=== PATIENT | female | born 1980 | race Caucasian/White ===

== ENCOUNTER 2019-06-06 03:27 | Emergency (ER) | payer OTHER ==
[~2019-06-06] VITALS: Ht 165.1 cm; Wt 59.0 kg
[2019-06-06 03:37] VITALS: BP 109/74
--- NOTE | 2019-06-06 03:37 | NUR ---
ED Nurse Note: Patient walked in to ER due to bug bite on bilateral ankle since yesterday, unknown insect, reports itching and pain, blisters noted. Able to walk with steady gait. No SOB. Afebrile. VSS.
[2019-06-06] MEDS ORDERED: Clindamycin 600mg 50 ML IVPB ONE (03:45)
[2019-06-06] MEDS ORDERED: Bacitracin Oint UD TOPIC ONE (03:45)
[2019-06-06] MEDS ORDERED: CLINDAMYCIN HC300 MG ORAL (03:49)
[2019-06-06] MEDS ORDERED: BENADRYL25 MG ORAL (03:49)
[2019-06-06] MEDS ORDERED: MUPIROCIN22 GM TOPIC (03:49)
--- NOTE | 2019-06-06 03:50 | Emergency Room Report ---
History of Present Illness General Chief Complaint: Skin Rash/Abscess Source: Patient Present Illness [facility] This is a 39-year-old female with no past medical history. She presents with chief complaint of redness and itchiness to bilateral lower extremity. She noticed some itchiness and mild redness yesterday. She went hiking this morning. When she came home he got worse and now is more red and couple blister to the left ankle. Some mild redness to the right. Did not see anything biting her. Denies any fever chills but denies any nausea vomiting. She been using hydrocortisone cream is not helping. No other complaint. Worse with scratching. Better with rest. Allergies: Coded Allergies: No Known Allergies (Unverified , 06/06/19) Patient History Past Medical History: see triage record, old chart reviewed Past Surgical History: none Pertinent Family History: none Social History: Denies: smoking Now: No Immunizations: other Reviewed Nursing Documentation: PMH: Agreed; PSxH: Agreed Nursing Documentation-PMH Past Medical History: No Stated History Review of Systems Eye: Denies: eye pain, blurred vision ENT: Denies: ear pain, nose congestion, throat swelling Respiratory: Denies: cough, shortness of breath Cardiovascular: Denies: chest pain, palpitations Gastrointestinal: Denies: abdominal pain, diarrhea, nausea, vomiting Musculoskeletal: Denies: back pain, joint pain Skin: Reports: rash Neurological: Denies: headache, numbness Endocrine: Denies: increased thirst, increased urine Hematologic/Lymphatic: Denies: easy bruising All Other Systems: negative except mentioned in HPI Physical Exam Vital Signs Date Time Temp Pulse Resp B/P (MAP) Pulse Ox O2 Delivery O2 Flow Rate FiO2 06/06/19 03:34 97.7 82 18 109/74 (86) 98 Room Air Vitals normal Sp02 EP Interpretation: reviewed, normal General Appearance: well appearing, no apparent distress, alert Head: normocephalic, atraumatic Eyes: bilateral eye PERRL, bilateral eye EOMI ENT: hearing grossly normal, normal pharynx Neck: full range of motion, supple, no meningismus Respiratory: chest non-tender, lungs clear, normal breath sounds Cardiovascular #1: regular rate, rhythm, no murmur Gastrointestinal: normal bowel sounds, non tender, no mass, no organomegaly, no bruit, non-distended Musculoskeletal: back normal, gait/station normal, normal range of motion, other - Right ankle: There is mild erythema to the medial aspect and warmth. Left ankle: There is small blister to the medial aspect of her left ankle area. There is also erythema measuring about 5 to 8 cm. Also warm to the touch. No crepitance. Full range of motion of the ankle. Pulse normal. Psychiatric: mood/affect normal Medical Decision Making Diagnostic Impression: Primary Impression: Cellulitis of both lower extremities ER Course This patient presents with cellulitis to the lower extremities. No evidence of necrotizing fasciitis or abscess. I sent culture of the wound. The blister just has serous fluid. No pus. No blood. Had a small break in the skin and infection but worsened by hiking. Last Vital Signs Date Time Temp Pulse Resp B/P (MAP) Pulse Ox O2 Delivery O2 Flow Rate FiO2 06/06/19 03:37 97.7 78 18 109/74 98 Room Air Status: improved Disposition: HOME, SELF-CARE Condition: Stable Scripts Mupirocin* (MUPIROCIN*) 22 Gm Oint...g. 1 APPLIC TOPIC THREE TIMES A DAY, #22 GM Prov: Bola Abreu MD 06/06/19 Diphenhydramine Hcl* (BENADRYL*) 25 Mg Capsule 25 MG ORAL Q6H PRN for Itching, #30 CAP Prov: Bola Abreu MD 06/06/19 Clindamycin Hcl (CLINDAMYCIN HCL) 300 Mg Capsule 300 MG ORAL THREE TIMES A DAY, #21 CAP Prov: Bola Abreu MD 06/06/19 Referrals: [facility],REFERRING (PCP) Additional Instructions: Elevate legs. Keep wound clean. Clean first with hydrogen peroxide and then apply antibiotic ointment. Follow-up with your doctor in 2 to 5 days for recheck. Return if worse. Bola Abreu MD Jun 06, 2019 03:50
[2019-06-06 04:09] VITALS: BP 109/74
--- NOTE | 2019-06-06 04:09 | NUR ---
ED Nurse Note: Pt cleared by ERMD for discharge. DC instructions/prescription was given and explained to pt and verbalized understanding of teachings. All medical deviecs such as ID band and IV line removed. Pt is AAO x4, ambulatory and left with all personal belongings.
== END 2019-06-06 04:09 | disposition home or self-care (01) ==
LOC: EMR 03:37
DX: L03.116 Cellulitis of left lower limb (principal); L03.115 Cellulitis of right lower limb
CPT/HCPCS: 87070; 87205; 96365; Z7502; 99284; S0077

== ENCOUNTER 2019-06-06 21:57 | Emergency (ER) | payer OTHER ==
[~2019-06-06] VITALS: Ht 165.1 cm; Wt 59.0 kg
[~2019-06-06 21:57] MED LIST: BENADRYL25 MG ORAL; CLINDAMYCIN HC300 MG ORAL; MUPIROCIN22 GM TOPIC
[2019-06-06 22:07] VITALS: BP 124/79
--- NOTE | 2019-06-06 22:08 | NUR ---
ED Nurse Note: Pt walked in c/o LT ankle redness. Pt stated she was [place] [facility] [place]05 and was given mupirocin and clindamycin 300mg. Pt stated she is expriencing more severe reaction.
[2019-06-06] MEDS ORDERED: DiphenhydrAMINE 50mg/ml Inj IVP ONE (22:15)
[2019-06-06] MEDS ORDERED: cefTRIAXone 1 GM in NS 55 ML IVPB ONE (22:15)
--- NOTE | 2019-06-06 22:16 | Emergency Room Report ---
History of Present Illness General Chief Complaint: Skin Rash/Abscess Source: Patient Present Illness HPI Is a 39-year-old female with no past medical history. She presents with chief complaint of infection to lower extremity and for recheck. I saw this patient less than 24 hours ago. She has some cellulitis mostly to the right lower extremity above the ankle area. She was given IV clindamycin and prescribed clindamycin and Benadryl. She took the Benadryl at noon today. She thinks is getting worse. She said it is itchy. No fever chills but no nausea no vomiting. Denies any other complaint. She is here for recheck. Allergies: Coded Allergies: No Known Allergies (Unverified , 06/06/19) Patient History Past Medical History: see triage record, old chart reviewed Past Surgical History: none Pertinent Family History: none Social History: Denies: smoking Last Menstrual Period: 06/05/2019 Now: No Immunizations: other Reviewed Nursing Documentation: PMH: Agreed; PSxH: Agreed Nursing Documentation-PMH Past Medical History: No Stated History Review of Systems Eye: Denies: eye pain, blurred vision ENT: Denies: ear pain, nose congestion, throat swelling Respiratory: Denies: cough, shortness of breath Cardiovascular: Denies: chest pain, palpitations Gastrointestinal: Denies: abdominal pain, diarrhea, nausea, vomiting Musculoskeletal: Denies: back pain, joint pain Skin: Reports: rash Neurological: Denies: headache, numbness Endocrine: Denies: increased thirst, increased urine Hematologic/Lymphatic: Denies: easy bruising All Other Systems: negative except mentioned in HPI Physical Exam Vital Signs Date Time Temp Pulse Resp B/P (MAP) Pulse Ox O2 Delivery O2 Flow Rate FiO2 06/06/19 22:00 97.7 70 16 118/77 (91) 96 Room Air Vitals normal Sp02 EP Interpretation: reviewed, normal General Appearance: well appearing, no apparent distress, alert Head: normocephalic, atraumatic Eyes: bilateral eye PERRL, bilateral eye EOMI ENT: hearing grossly normal, normal pharynx Neck: full range of motion, supple, no meningismus Respiratory: chest non-tender, lungs clear, normal breath sounds Cardiovascular #1: regular rate, rhythm, no murmur Gastrointestinal: normal bowel sounds, non tender, no mass, no organomegaly, no bruit, non-distended Musculoskeletal: back normal, gait/station normal, normal range of motion, other - Right lower extremity: As above the ankle, there is mild erythema which is better than last time I saw her. Left lower extremity: The area of erythema above the medial aspect the ankle is actually less. There is no warmth as compared to yesterday. There is no lymphatic spread. No crepitance. Psychiatric: mood/affect normal Medical Decision Making Diagnostic Impression: Primary Impression: Visit for wound check Additional Impression: Cellulitis of both lower extremities ER Course Patient here for wound check. In my opinion, this actually looked a little better from yesterday. No evidence of necrotizing fasciitis or abscess. We will give her a dose of IV antibiotics and reassurance. Will discharge home. Last Vital Signs Date Time Temp Pulse Resp B/P (MAP) Pulse Ox O2 Delivery O2 Flow Rate FiO2 06/06/19 22:07 97.9 69 15 124/79 100 Room Air Status: improved Disposition: HOME, SELF-CARE Condition: Stable Additional Instructions: Keep wound covered. Dressing twice a day. Clean first with hydrogen peroxide and then apply small amount of antibiotic ointment. Then cover the wound. Follow-up with your doctor in 2-3 days for recheck. Continue with your Benadryl for itching and antibiotic pill. Return if symptoms worsen. Bola Abreu MD Jun 06, 2019 22:16
[2019-06-06 22:36] VITALS: BP 121/74
--- NOTE | 2019-06-06 22:37 | NUR ---
ER DISCHARGE NOTE: Patient is cleared to be discharged per ERMD, pt is aox4, on room air, with stable vital signs. pt was given dc instructions, pt was able to verbalize understanding, pt id band and iv site removed without complications. pt is able to ambulate with steady gait. pt took all belongings.
== END 2019-06-06 22:36 | disposition home or self-care (01) ==
LOC: EMR 22:15
DX: Z09 Encounter for follow-up examination after completed treatment for conditions other than malignant neoplasm (principal); L03.116 Cellulitis of left lower limb; L03.115 Cellulitis of right lower limb
CPT/HCPCS: 96365; 96375; J0696; J1200; Z7502; 99284

== ENCOUNTER 2019-10-02 12:05 | Emergency (ER) | payer OTHER ==
[~2019-10-02] VITALS: Ht 165.1 cm; Wt 56.7 kg
[2019-10-02 12:10] VITALS: BP 116/78
--- NOTE | 2019-10-02 13:14 | Emergency Room Report ---
History of Present Illness General Chief Complaint: Upper Respiratory Illness Source: Significant Other Present Illness HPI 39-year-old female presents to the emergency department complaining of progressive persistent cough x2 weeks. Patient denies fevers, chills, recent travel, ill contacts with similar symptoms. Patient denies sore throat, nasal congestion or rhinorrhea. She denies body aches or increased fatigue. Patient reports that she has picked up smoking and has been smoking cigarettes more frequently the past 2 weeks. Patient is also concerned that she may have coronavirus. She states she is up-to-date with all vaccinations otherwise. 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 She denies pain at this time. Patient reports intermittent mucus in her throat that she is unable to clear. No other aggravating or relieving factors at this time. Allergies: Coded Allergies: No Known Allergies (Unverified , 06/06/19) Patient History Past Medical History: see triage record Past Surgical History: none Pertinent Family History: none Last Menstrual Period: 09/18/19 Now: No Immunizations: UTD Reviewed Nursing Documentation: PMH: Agreed; PSxH: Agreed Nursing Documentation-PMH Past Medical History: No Stated History Review of Systems All Other Systems: negative except mentioned in HPI Physical Exam Vital Signs Date Time Temp Pulse Resp B/P (MAP) Pulse Ox O2 Delivery O2 Flow Rate FiO2 10/02/19 12:10 71 18 Room Air 10/02/19 12:10 97.3 116/78 (91) 96 Sp02 EP Interpretation: reviewed, normal General Appearance: no apparent distress, alert, GCS 15, non-toxic Head: normocephalic, atraumatic Eyes: bilateral eye normal inspection, bilateral eye PERRL ENT: hearing grossly normal, normal voice Neck: full range of motion Respiratory: chest non-tender, lungs clear, normal breath sounds, speaking full sentences Cardiovascular #1: regular rate, rhythm Musculoskeletal: normal range of motion, gait/station normal, non-tender Neurologic: alert, motor strength/tone normal, oriented x3, sensory intact, responsive, speech normal Psychiatric: judgement/insight normal Lymphatic: no adenopathy Medical Decision Making PA Attestation Dr. Barrera Is my supervising Physician whom patient management has been discussed with. Diagnostic Impression: Primary Impression: Cough ER Course 39-year-old female presents to the emergency department complaining of progressive persistent cough x2 weeks. Patient denies fevers, chills, recent travel, ill contacts with similar symptoms. Patient denies sore throat, nasal congestion or rhinorrhea. She denies body aches or increased fatigue. Patient reports that she has picked up smoking and has been smoking cigarettes more frequently the past 2 weeks. Patient is also concerned that she may have coronavirus. She states she is up-to-date with all vaccinations otherwise. 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 She denies pain at this time. Patient reports intermittent mucus in her throat that she is unable to clear. No other aggravating or relieving factors at this time. Ddx considered but are not limited to URI, pneumonia, PE, strep pharyngitis, meningitis. Vital signs: Pt.is afebrile VS are WNL H&PE are most consistent with benign cough, no evidence of URI. PNA ORDERS: -CXR : WNL ED INTERVENTIONS: None required at this time. DISCHARGE: At this time pt. is stable for d/c to home. Will provide printed patient care instructions, and any necessary prescriptions. Care plan and follow up instructions have been discussed with the patient prior to discharge. Chest X-Ray Diagnostic Results Chest X-Ray Diagnostic Results : Chest X-Ray Ordered: Yes # of Views/Limited/Complete: 1 View Indication: Shortness of Breath EP Interpretation: Yes ART Xray: Interpretation reviewed, by supervising MD, and agrees with findings. Interpretation: no consolidation, no effusion, no pneumothorax Impression: No acute disease Electronically Signed by: Ramila Hansen PA-C Last Vital Signs Date Time Temp Pulse Resp B/P (MAP) Pulse Ox O2 Delivery O2 Flow Rate FiO2 10/02/19 12:10 97.3 71 18 116/78 96 Room Air Disposition: HOME, SELF-CARE Condition: Stable Scripts No Active Prescriptions or Reported Meds Patient Instructions: Cough, Adult, [id number] Additional Instructions: Take medications as directed. Follow up with a Primary Care Provider in 3-5 days, even if your symptoms have resolved. --Please review list of primary care clinics, if you do not already have a primary care provider Return sooner to ED if new symptoms occur, or current symptoms become worse. - Please note that this Emergency Department Report was dictated using [employer] technology software, occasionally this can lead to erroneous entry secondary to interpretation by the dictation equipment. Ramila Hansen Oct 02, 2019 13:14
[2019-10-02] MEDS ORDERED: ALBUTEROL SULF8.5 GM INH (13:24)
[2019-10-02] MEDS ORDERED: GUAIFENESIN DM118 M1 ORAL (13:24)
[2019-10-02 13:31] VITALS: BP 112/80
--- NOTE | 2019-10-02 13:35 | Diagnostic Imaging Report ---
Indication: Dyspnea Comparison: None A single view chest radiograph was obtained. Findings: Cardiomediastinal appearance is within normal limits for age. The lungs are clear. Pulmonary vascularity is appropriate. The diaphragmatic contour is smooth and costophrenic angles are sharp. No pleural effusions are identified. The bones are unremarkable. Impression: No acute findings
== END 2019-10-02 18:00 | disposition home or self-care (01) ==
LOC: EMR 17:15
DX: R05 Cough (principal); R06.00 Dyspnea, unspecified
CPT/HCPCS: 71045; Z7502; 99283